=== PATIENT | female | born 1945 | race Caucasian/White ===

== ENCOUNTER 2019-02-14 06:50 | Emergency (ER) | payer OTHER ==
[~2019-02-14] VITALS: Ht 162.6 cm; Wt 66.2 kg
[~2019-02-14 06:50] MED LIST: AMLODIPINE BESYL5 MG; DIOVAN320 MG; METOPROLOL SUCC25 MG
== END 2019-02-14 12:58 | disposition home or self-care (01) ==
LOC: ER 06:50
DX: N20.1 Calculus of ureter (principal)

== ENCOUNTER 2020-06-29 11:03 | Outpatient (CLI) | payer OTHER | END 2020-06-29 11:05 | disposition home or self-care (01) | LOC: SONOGRAMA 11:03 | PROVIDERS: ATTEND Pathology Anatomic Pathology & Clinical Pathology | DX: D34 Benign neoplasm of thyroid gland (principal); E04.1 Nontoxic single thyroid nodule; E04.8 Other specified nontoxic goiter; E07.89 Other specified disorders of thyroid ==

== ENCOUNTER 2021-09-12 11:32 | Outpatient (CLI) | payer OTHER | END 2021-09-12 12:44 | disposition home or self-care (01) | LOC: LAB 11:32 | PROVIDERS: ATTEND Radiology Diagnostic Radiology | DX: R22.0 Localized swelling, mass and lump, head (principal) ==

== ENCOUNTER 2021-09-19 08:08 | Outpatient (CLI) | payer OTHER | END 2021-09-19 08:10 | disposition home or self-care (01) | LOC: TOM 08:08 | PROVIDERS: ATTEND Internal Medicine Cardiovascular Disease | DX: R22.0 Localized swelling, mass and lump, head (principal) | CPT/HCPCS: 70470; Q9965 ==